=== PATIENT | female | born 1990 ===

== ENCOUNTER 2021-05-18 09:28 | Emergency (ER) | payer OTHER ==
[2021-05-18] MEDS ORDERED: Morphine 4 MG/ML Syringe IM ONE (09:35)
[2021-05-18] MEDS ORDERED: Cyclobenzaprine 10 MG Tab PO ONE (10:28)
[2021-05-18] MEDS ORDERED: oxyCODONE 5 MG Tab PO ONE (10:28)
== END 2021-05-18 12:25 ==
LOC: JP.ED 09:28
DX: S39.012A Strain of muscle, fascia and tendon of lower back, initial encounter (principal); S16.1XXA Strain of muscle, fascia and tendon at neck level, initial encounter; S80.02XA Contusion of left knee, initial encounter; W18.39XA Other fall on same level, initial encounter
CPT/HCPCS: 72052; 72100; 73562; 96372; 99283; A9270; J2270